=== PATIENT | male | born 1955 | race Caucasian/White ===

== ENCOUNTER → 2024-10-17 | Outpatient (CLI) | payer MEDICARE ==
--- NOTE | 2024-10-17 09:03 | CTL ---
EXAMINATION TYPE: CT Low Dose Lung DATE OF EXAM: 10/17/2024 8:30 AM COMPARISON: None. CLINICAL INDICATION: Male, 69 years old with history of Z12.2 ENCNTR SCREEN FOR MALIGNANT NEOPLASM OF RESP, current smoker 1 pack a day for 30 years, History of tobacco use. TECHNIQUE: Low dose computed tomography scan was performed through the chest at 1 mm thick sections a nd reconstructed images in multiple planes at 1 mm and [address] DLP: 159.3 mGycm, CT CTDI: 4.0 mGy, Automated exposure control for dose reduction was used. CT DIAGNOSTIC QUALITY: Satisfactory FINDINGS: Heart is normal size without pericardial effusion. Scattered 3 vessel coronary artery calcifications are present. Moderate aortic valve calcifications. 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 Calcified hilar and mediastinal lymph nodes compatible with prior granulomatous disease. No thoracic lymphadenopathy by CT size criteria. Mild diffuse bronchial wall thickening. Strandy atelectasis/scarring in the right mid lung and bilate ral lower lungs. Mild emphysematous change. No consolidation or pleural effusion. Tiny calcified gran uloma posterior left lung base. No suspicious pulmonary nodules are seen. Visualized upper abdomen shows a tiny 5 mm gallstone. Bones: Some anterior endplate spondylosis lower thoracic spine with mild to moderate degenerative dis c disease. IMPRESSION: 1. LungRADS 2; tiny calcified granuloma at the posterior left lung base relating to prior granulomato us disease. No suspicious pulmonary nodules. 2. COPD with minimal emphysema. Scattered strandy scarring/atelectasis mid and lower lungs. Recommend smoking cessation. 3. Tiny 5 mm gallstone. Scattered three-vessel coronary artery calcifications. CT LUNG RAD AND CT CHEST RECOMMENDATION: Lung-Rad 2 Benign Appearance or Behavior: Continue annual sc reening with LDCT in 12 months. S Modifier (other clinically significant findings): None [facility], , 10/17/2024 9:01 AM
== END | disposition home or self-care (01) ==
LOC: RADCTMAIN 08:00
DX: Z12.2 Encounter for screening for malignant neoplasm of respiratory organs (principal); F17.210 Nicotine dependence, cigarettes, uncomplicated; J44.9 Chronic obstructive pulmonary disease, unspecified; J43.9 Emphysema, unspecified; I25.10 Atherosclerotic heart disease of native coronary artery without angina pectoris; K80.20 Calculus of gallbladder without cholecystitis without obstruction; J98.4 Other disorders of lung
CPT/HCPCS: 71271